=== PATIENT | male | born 1960 | race Caucasian/White ===

== ENCOUNTER 2019-05-15 11:42 | Emergency (ER) | payer MEDICAID, OTHER ==
[~2019-05-15] VITALS: Ht 175 cm; Wt 81.0 kg
[2019-05-15 14:00] LABS: BASOPHILS # (AUTO) 0.1 10^3/uL (0.0-0.1); BASOPHILS % (AUTO) 0 % (0-10); EOSINOPHILS # (AUTO) 0.2 10^3/uL (0.0-0.3); EOSINOPHILS % (AUTO) 1 % (0-10); HEMATOCRIT 43 % (40-54); HEMOGLOBIN 14.7 G/DL (13.3-17.7); LYMPHOCYTES # (AUTO) 1.8 X 10^3 (1.0-4.0); LYMPHOCYTES % (AUTO) 16 % (12-44); MEAN CORPUSCULAR HEMOGLOBIN 30 PG (25-34); MEAN CORPUSCULAR HGB CONC 34 G/DL (32-36); MEAN CORPUSCULAR VOLUME 88 FL (80-99); MEAN PLATELET VOLUME 9.3 FL (7.4-10.4); MONOCYTES # (AUTO) 0.7 X 10^3 (0.0-1.0); MONOCYTES % (AUTO) 7 % (0-12); NEUTROPHILS # (AUTO) 8.4 X 10^3 (1.8-7.8); NEUTROPHILS % (AUTO) 76 % (42-75); PLATELET COUNT 299 10^3/uL (130-400); RED CELL DISTRIBUTION WIDTH 13.6 % (10.0-14.5); WHITE BLOOD COUNT 11.2 10^3/uL (4.3-11.0)
[2019-05-15 14:18] LABS: ALANINE AMINOTRANSFERASE 20 U/L (0-55); ALBUMIN 4.4 GM/DL (3.2-4.5); ALKALINE PHOSPHATASE 152 U/L (40-136); BILIRUBIN,TOTAL 0.2 MG/DL (0.1-1.0); BUN/CREATININE RATIO 13; CALCIUM 9.2 MG/DL (8.5-10.1); CARBON DIOXIDE 27 MMOL/L (21-32); CHLORIDE 105 MMOL/L (98-107); CREATININE SERUM 0.96 MG/DL (0.60-1.30); GFR ESTIMATED > 60; GLUCOSE 116 MG/DL (70-105); MAGNESIUM 2.1 MG/DL (1.6-2.4); POTASSIUM 4.3 MMOL/L (3.6-5.0); SODIUM 139 MMOL/L (135-145); TOTAL PROTEIN 7.2 GM/DL (6.4-8.2)
[2019-05-15 14:50] LABS: BILIRUBIN,URINE NEGATIVE (NEGATIVE); CLARITY,URINE CLEAR; COLOR,URINE YELLOW; GLUCOSE, URINE (UA) NEGATIVE (NEGATIVE); KETONES,URINE NEGATIVE (NEGATIVE); LEUKOCYTE ESTERASE ,URINE NEGATIVE (NEGATIVE); NITRITE,URINE NEGATIVE (NEGATIVE); PROTEIN,URINE NEGATIVE (NEGATIVE)
[2019-05-15 15:01] LABS: BACTERIA,URINE TRACE /HPF; HYALINE CASTS, URINE 0-2 /LPF; WBC,URINE RARE /HPF
[2019-05-15 15:02] LABS: AMPHETAMINE SCREEN, URINE NEGATIVE (NEGATIVE); BARBITURATE SCREEN URINE NEGATIVE (NEGATIVE); BENZODIAZEPINES SCREEN URINE NEGATIVE (NEGATIVE); CANNABINOID SCREEN, URINE POSITIVE (NEGATIVE); COCAINE SCREEN URINE NEGATIVE (NEGATIVE); METHADONE STAT NEGATIVE (NEGATIVE); METHAMPHETAMINE SCREEN URINE S NEGATIVE (NEGATIVE); OPIATE SCREEN URINE NEGATIVE (NEGATIVE); OXYCODONE STAT NEGATIVE (NEGATIVE); PROPOXYPHENE STAT NEGATIVE (NEGATIVE); TRICYCLIC ANTIDEPRESSANTS SCRE NEGATIVE (NEGATIVE)
[2019-05-15] MEDS ORDERED: NS IV 1000 ML 1,000 ML IV ONE (15:09)
--- NOTE | 2019-05-15 15:51 | ED Syncope ---
General Chief Complaint: Dizziness/Syncope Stated Complaint: WEAKNESS,NAUSEA Nursing Triage Note: PT STATES HE STARTED A NEW MED TODAY- ABILIFY, AND HAS HAD 2-3 SYNCOPAL EPISODES, ONCE FALLING ON TO BOTH KNEE CAPS. DENIES STRIKING HEAD, DENIES NV Allergies and Home Medications Allergies Coded Allergies: codeine (Verified Allergy, Unknown, 05/15/19) Past Jiogakh-Rlhljr-Etptqe Hx Patient Social History Alcohol Use: Occasionally Uses Alcohol Beverage of Choice: Beer Recreational Drug Use: Yes Drug of Choice: METH, HEROIN, MARIJUANNA. Smoking Status: Never a Smoker Recent Foreign Travel: No Contact w/Someone Who Travel: No Recent Infectious Disease Expo: No Recent Hopitalizations: No Physical Abuse: No Sexual Abuse: No Mistreated: No Fear: No Immunizations Up To Date Tetanus Booster (TDap): Less than 5yrs PED Vaccines UTD: Yes Past Medical History Surgeries: No Appendectomy Respiratory: No Cardiac: No Neurological: No Genitourinary: No Gastrointestinal: Yes (COLON POLYPS ) Musculoskeletal: No Endocrine: No HEENT: No Cancer: No Psychosocial: Yes Depression Physical Exam Vital Signs Vital Signs - First Documented 05/15/19 13:08 Pulse 78 Resp 18 B/P (MAP) 146/87 (106) Pulse Ox 99 O2 Delivery Room Air Capillary Refill : Less Than 3 Seconds Height, Weight, BMI Height: '" Weight: lbs. oz. kg; 26.00 BMI Method: Progress/Results/Core Measures Results/Orders Lab Results Laboratory Tests Test 05/15/19 13:50 05/15/19 14:35 Range/Units White Blood Count 11.2 H 4.3-11.0 10^3/uL Red Blood Count 4.92 4.35-5.85 10^6/uL Hemoglobin 14.7 13.3-17.7 G/DL Hematocrit 43 40-54 % Mean Corpuscular Volume 88 80-99 FL Mean Corpuscular Hemoglobin 30 25-34 PG Mean Corpuscular Hemoglobin Concent 34 32-36 G/DL Red Cell Distribution Width 13.6 10.0-14.5 % Platelet Count 299 130-400 10^3/uL Mean Platelet Volume 9.3 7.4-10.4 FL Neutrophils (%) (Auto) 76 H 42-75 % Lymphocytes (%) (Auto) 16 12-44 % Monocytes (%) (Auto) 7 0-12 % Eosinophils (%) (Auto) 1 0-10 % Basophils (%) (Auto) 0 0-10 % Neutrophils # (Auto) 8.4 H 1.8-7.8 X 10^3 Lymphocytes # (Auto) 1.8 1.0-4.0 X 10^3 Monocytes # (Auto) 0.7 0.0-1.0 X 10^3 Eosinophils # (Auto) 0.2 0.0-0.3 10^3/uL Basophils # (Auto) 0.1 0.0-0.1 10^3/uL Sodium Level 139 135-145 MMOL/L Potassium Level 4.3 3.6-5.0 MMOL/L Chloride Level 105 98-107 MMOL/L Carbon Dioxide Level 27 21-32 MMOL/L Anion Gap 7 5-14 MMOL/L Blood Urea Nitrogen 12 7-18 MG/DL Creatinine 0.96 0.60-1.30 MG/DL Estimat Glomerular Filtration Rate > 60 BUN/Creatinine Ratio 13 Glucose Level 116 H 70-105 MG/DL Calcium Level 9.2 8.5-10.1 MG/DL Corrected Calcium 8.9 8.5-10.1 MG/DL Magnesium Level 2.1 1.6-2.4 MG/DL Total Bilirubin 0.2 0.1-1.0 MG/DL Aspartate Amino Transf (AST/SGOT) 14 5-34 U/L Alanine Aminotransferase (ALT/SGPT) 20 0-55 U/L Alkaline Phosphatase 152 H 40-136 U/L Total Protein 7.2 6.4-8.2 GM/DL Albumin 4.4 3.2-4.5 GM/DL Serum Alcohol < 10 <10 MG/DL Urine Color YELLOW Urine Clarity CLEAR Urine pH 6.0 5-9 Urine Specific [place] 1.020 1.016-1.022 Urine Protein NEGATIVE NEGATIVE Urine Glucose (UA) NEGATIVE NEGATIVE Urine Ketones NEGATIVE NEGATIVE Urine Nitrite NEGATIVE NEGATIVE Urine Bilirubin NEGATIVE NEGATIVE Urine Urobilinogen 0.2 < = 1.0 MG/DL Urine Leukocyte Esterase NEGATIVE NEGATIVE Urine RBC (Auto) NEGATIVE NEGATIVE Urine RBC NONE /HPF Urine WBC RARE /HPF Urine Squamous Epithelial Cells 2-5 /HPF Urine Crystals NONE /LPF Urine Bacteria TRACE /HPF Urine Casts PRESENT /LPF Urine Hyaline Casts 0-2 H /LPF Urine Mucus NEGATIVE /LPF Urine Culture Indicated NO Urine Opiates Screen NEGATIVE NEGATIVE Urine Oxycodone Screen NEGATIVE NEGATIVE Urine Methadone Screen NEGATIVE NEGATIVE Urine Propoxyphene Screen NEGATIVE NEGATIVE Urine Barbiturates Screen NEGATIVE NEGATIVE Ur Tricyclic Antidepressants Screen NEGATIVE NEGATIVE Urine Phencyclidine Screen NEGATIVE NEGATIVE Urine Amphetamines Screen NEGATIVE NEGATIVE Urine Methamphetamines Screen NEGATIVE NEGATIVE Urine Benzodiazepines Screen NEGATIVE NEGATIVE Urine Cocaine Screen NEGATIVE NEGATIVE Urine Cannabinoids Screen POSITIVE H NEGATIVE My Orders Orders - GABBY BENDER MD Cbc With Automated Diff (05/15/19 11:45) Comprehensive Metabolic Panel (05/15/19 11:45) Magnesium (05/15/19 11:45) Ua Culture If Indicated (05/15/19 11:45) Ed Iv/Invasive Line Start (05/15/19 11:45) Ekg Tracing (05/15/19 13:33) Monitor-Rhythm Ecg Trace Only (05/15/19 13:33) Drug Screen Stat (Urine) (05/15/19 13:34) Alcohol (05/15/19 11:45) Ns Iv 1000 Ml (Sodium Chloride 0.9%) (05/15/19 15:09) Medications Given in ED Current Medications Medications Dose Ordered Sig/Maria Route Start Time Stop Time Status Last Admin Dose Admin Sodium Chloride 1,000 ml @ 0 mls/hr Q0M ONCE IV 05/15/19 15:09 05/15/19 15:14 DC 05/15/19 15:37 1,000 MLS/HR Vital Signs/I&O 05/15/19 13:08 Pulse 78 Resp 18 B/P (MAP) 146/87 (106) Pulse Ox 99 O2 Delivery Room Air Blood Pressure Mean: 106 Departure Impression Primary Impression: Near syncope Disposition: 01 HOME, SELF-CARE Condition: Improved Departure-Patient Inst. Decision time for Depature: 03:45 [facility] Primary Care Physician EVA KELLOGG (Family) Primary Care Physician Patient Instructions: Syncope (Fainting) Add. Discharge Instructions: Drink plenty of clear liquids. Discontinue Abilify. Please notify your prescribing physician that you have discontinued Abilify. Avoid any dangerous activities that could cause a problem with lightheadedness until the effect of Abilify has worn off. Return to the emergency room if you have worsening symptoms. All discharge instructions reviewed with patient and/or family. Voiced understanding. GABBY BENDER MD May 15, 2019 15:51
[2019-05-15 16:18] VITALS: BP 126/81
== END 2019-05-15 16:19 | disposition home or self-care (01) ==
LOC: ER 11:43
DX: R55 Syncope and collapse (principal); Z88.5 Allergy status to narcotic agent; Z90.49 Acquired absence of other specified parts of digestive tract
CPT/HCPCS: 36415; 80053; 80306; 80320; 81000; 83735; 85025; 93005; 93041

== ENCOUNTER 2020-08-27 12:18 | Emergency (ER) | payer MEDICAID ==
[~2020-08-27] VITALS: Ht 172 cm; Wt 86.0 kg
--- NOTE | 2020-08-27 13:12 | ED Abdominal Pain ---
General Chief Complaint: Abdominal/GI Problems Stated Complaint: ABD/BACK PAIN Nursing Triage Note: Pt reports abd pain and nausea/vomiting for approx 1 week, progressively getting worse. Lower abd pain radiating to bilat flanks. Pt also reports bloating. Sepsis Screen: No Definite Risk Source of Information: Patient Exam Limitations: No Limitations History of Present Illness Date Seen by Provider: August 27, 2020 Time Seen by Provider: 13:07 Initial Comments To ER with a 3-month history of loose stools that he would not consider diarrhea. [place] foods seem to make this worse. The color varies. He has nausea usually after he eats anything spicy or greasy. He occasionally has some right upper quadrant pain. The pain that brought him in today began about a week ago and this pain is in the suprapubic location that radiates straight through to the back. He has attributed this to stress as he lost his daughter 5 years ago when he is working and raising 2 autistic grandchildren. Timing/Duration: 1 Week Severity/Quality: Moderate Location: Suprapubic Radiation: No Radiation Activities at Onset: None Associated Symptoms: Denies Symptoms Allergies and Home Medications Allergies Coded Allergies: codeine (Verified Allergy, Unknown, 05/15/19) Patient Home Medication List Home Medication List Reviewed: Yes Review of Systems Review of Systems Constitutional: see HPI EENTM: No Symptoms Reported Respiratory: No Symptoms Reported Cardiovascular: No Symptoms Reported Gastrointestinal: See HPI, Abdominal Pain, Nausea Genitourinary: No Symptoms Reported Musculoskeletal: no symptoms reported Skin: no symptoms reported Psychiatric/Neurological: No Symptoms Reported Endocrine: No Symptoms Reported Hematologic/Lymphatic: No Symptoms Reported Past Sniqzjv-Uzikmw-Ktbioa Hx Patient Social History Alcohol Use: Occasionally Uses Number of Drinks Today: AA Alcohol Beverage of Choice: Beer Drug of Choice: METH, HEROIN, 17 YEARS CLEAN Smoking Status: Current Everyday Smoker Recent Infectious Disease Expo: No Recent Hopitalizations: No Immunizations Up To Date Tetanus Booster (TDap): Less than 5yrs PED Vaccines UTD: Yes Past Medical History Surgeries: Yes Appendectomy Respiratory: No Cardiac: No Neurological: No Genitourinary: No Gastrointestinal: Yes (COLON POLYPS >20) Musculoskeletal: No Endocrine: No HEENT: No Cancer: No Psychosocial: Yes Depression Integumentary: No Physical Exam Vital Signs Vital Signs - First Documented 08/27/20 12:43 Temp 36.7 Pulse 66 Resp 18 B/P (MAP) 122/69 (86) Pulse Ox 99 O2 Delivery Room Air Capillary Refill : Less Than 3 Seconds Height/Weight/BMI Height: '" Weight: lbs. oz. kg; 29.00 BMI Method: General Appearance: WD/WN, no apparent distress HEENT: PERRL/EOMI, normal ENT inspection Respiratory: normal breath sounds, no respiratory distress, no accessory muscle use Cardiovascular: regular rate, rhythm, no murmur Gastrointestinal: normal bowel sounds, soft, tenderness Extremities: normal range of motion, non-tender Neurologic/Psychiatric: alert, normal mood/affect, oriented x 3 Skin: normal color, warm/dry Progress/Results/Core Measures Results/Orders Lab Results Laboratory Tests Test 08/27/20 13:08 Range/Units White Blood Count 7.3 4.3-11.0 10^3/uL Red Blood Count 4.99 4.30-5.52 10^6/uL Hemoglobin 14.8 13.3-17.7 g/dL Hematocrit 44 40-54 % Mean Corpuscular Volume 89 80-99 fL Mean Corpuscular Hemoglobin 30 25-34 pg Mean Corpuscular Hemoglobin Concent 33 32-36 g/dL Red Cell Distribution Width 13.2 10.0-14.5 % Platelet Count 270 130-400 10^3/uL Mean Platelet Volume 9.2 9.0-12.2 fL Immature Granulocyte % (Auto) 1 % Neutrophils (%) (Auto) 54 42-75 % Lymphocytes (%) (Auto) 34 12-44 % Monocytes (%) (Auto) 9 0-12 % Eosinophils (%) (Auto) 2 0-10 % Basophils (%) (Auto) 1 0-10 % Neutrophils # (Auto) 3.9 1.8-7.8 10^3/uL Lymphocytes # (Auto) 2.5 1.0-4.0 10^3/uL Monocytes # (Auto) 0.7 0.0-1.0 10^3/uL Eosinophils # (Auto) 0.1 0.0-0.3 10^3/uL Basophils # (Auto) 0.1 0.0-0.1 10^3/uL Immature Granulocyte # (Auto) 0.0 0.0-0.1 10^3/uL Urine Color YELLOW Urine Clarity CLEAR Urine pH 7.0 5-[address] [place] 1.025 H 1.016-1.022 Urine Protein NEGATIVE NEGATIVE Urine Glucose (UA) NEGATIVE NEGATIVE Urine Ketones NEGATIVE NEGATIVE Urine Nitrite NEGATIVE NEGATIVE Urine Bilirubin NEGATIVE NEGATIVE Urine Urobilinogen 1.0 < = 1.0 MG/DL Urine Leukocyte Esterase NEGATIVE NEGATIVE Urine RBC (Auto) NEGATIVE NEGATIVE Urine RBC RARE /HPF Urine WBC NONE /HPF Urine Squamous Epithelial Cells 0-2 /HPF Urine Crystals NONE /LPF Urine Bacteria NEGATIVE /HPF Urine Casts NONE /LPF Urine Mucus NEGATIVE /LPF Urine Culture Indicated NO Sodium Level 141 135-145 MMOL/L Potassium Level 4.5 3.6-5.0 MMOL/L Chloride Level 105 98-107 MMOL/L Carbon Dioxide Level 25 21-32 MMOL/L Anion Gap 11 5-14 MMOL/L Blood Urea Nitrogen 11 7-18 MG/DL Creatinine 0.93 0.60-1.30 MG/DL Estimat Glomerular Filtration Rate > 60 BUN/Creatinine Ratio 12 Glucose Level 109 H 70-105 MG/DL Calcium Level 9.3 8.5-10.1 MG/DL Corrected Calcium 9.1 8.5-10.1 MG/DL Total Bilirubin 0.4 0.1-1.0 MG/DL Aspartate Amino Transf (AST/SGOT) 19 5-34 U/L Alanine Aminotransferase (ALT/SGPT) 24 0-55 U/L Alkaline Phosphatase 136 40-136 U/L Total Protein 7.2 6.4-8.2 GM/DL Albumin 4.2 3.2-4.5 GM/DL Lipase 21 8-78 U/L My Orders Orders - BENNY KIRAN TAX MANAGER Cbc With Automated Diff (08/27/20 13:06) Comprehensive Metabolic Panel (08/27/20 13:06) Ua Culture If Indicated (08/27/20 13:06) Ed Iv/Invasive Line Start (08/27/20 13:06) Ct Abd/Pelvis Wo(Kidney Stone) (08/27/20 13:06) Lipase (08/27/20 13:06) Ketorolac Injection (Toradol Injection) (08/27/20 13:15) Ns Iv 1000 Ml (Sodium Chloride 0.9%) (08/27/20 13:15) Ondansetron Injection (Zofran Injectio (08/27/20 13:15) Us Gallbladder [id number] (08/27/20 13:15) Medications Given in ED Current Medications Medications Dose Ordered Sig/Maria Route Start Time Stop Time Status Last Admin Dose Admin Ketorolac Tromethamine 15 mg ONCE ONCE IVP 08/27/20 13:15 08/27/20 13:16 DC 08/27/20 13:27 15 MG Ondansetron HCl 8 mg ONCE ONCE IVP 08/27/20 13:15 08/27/20 13:16 DC 08/27/20 13:28 8 MG Vital Signs/I&O 08/27/20 12:43 Temp 36.7 Pulse 66 Resp 18 B/P (MAP) 122/69 (86) Pulse Ox 99 O2 Delivery Room Air Blood Pressure Mean: 86 Diagnostic Imaging Diagonstic Imaging: CT Comments NAME: KENZIE WILLIAMSON [facility] REC#: [id number] PT STATUS: REG ER : 1960 PHYSICIAN: BENNY KIRAN TAX MANAGER ADMIT DATE: 08/27/20/ER Draft Date of Exam:08/27/20 CT ABD/PELVIS WO(KIDNEY STONE) INDICATION: Abdominal pain. TECHNIQUE: Multiple contiguous axial images were obtained through the abdomen and pelvis without the use of intravenous contrast. Auto Exposure Controls were utilized during the CT exam to meet ALARA standards for radiation dose reduction. COMPARISON: There is no prior study for comparison. FINDINGS: Visualized portions of the lung bases are clear. There were no pleural fluid collections. There is no free intraperitoneal air. The liver shows no focal lesion. Gallbladder appears unremarkable. The spleen, adrenals, and pancreas appear normal. The kidneys bilaterally show no stones or hydronephrosis. There are no ureteral stones. There is no retroperitoneal mass or adenopathy. There is no ascites or abnormal fluid collection. Visualized bowel loops show no sign of obstruction. There are extensive uncomplicated sigmoid diverticuli and left colonic diverticuli. Appendix is not visualized. IMPRESSION: No hydronephrosis or ureteral stone. Uncomplicated sigmoid diverticuli. No sign of bowel obstruction or abnormal fluid collection or focal inflammatory process. Dictated on workstation # [id number] Dict: 08/27/20 1440 Trans: 08/27/20 1445 [facility] [id number] Interpreted by: IVANIA TARANGO MD Electronically signed by: Departure Communication (Admissions) NAME: KENZIE WILLIAMSON [facility] REC#: [id number] PT STATUS: REG ER : 1960 PHYSICIAN: BENNY KIRAN APRN ADMIT DATE: 08/27/20/ER Draft Date of Exam:08/27/20 US GALLBLADDER [id number] PROCEDURE: US Gallbladder. TECHNIQUE: Multiple real-time grayscale images were obtained over the right upper quadrant in various projections. INDICATION: Right upper quadrant pain. FINDINGS: The liver is normal in size at 15 cm. No discrete liver mass is detected. The portal vein is patent and shows normal direction of flow. Gallbladder is without stones or sludge. No wall thickening or biliary ductal dilatation is seen. Pancreas is unremarkable. Aorta is nonaneurysmal. Right kidney is without calculi or hydronephrosis. There is no ascites. IMPRESSION: Unremarkable gallbladder ultrasound. Dictated on workstation # [id number] Dict: 08/27/20 1408 Trans: 08/27/20 1411 AS6 [id number] Interpreted by: HOMERO TAYLOR MD Electronically signed by: Impression Primary Impression: Abdominal pain Disposition: HOME, SELF-CARE Condition: Stable Departure-Patient Inst. Decision time for Depature: 14:52 Referrals: NO,LOCAL PHYSICIAN (PCP) Primary Care Physician COTY FINK MD Patient Instructions: NO INSTRUCTIONS GIVEN Add. Discharge Instructions: 1. Follow-up with a primary care provider. Take the medication as directed. Return to ER for any worsening. All discharge instructions reviewed with patient and/or family. Voiced understanding. Scripts Dicyclomine HCl (Dicyclomine HCl) 20 Mg Tablet 20 MG PO TID, #30 TAB Prov: BENNY KIRAN APRN 08/27/20 BENNY KIRAN APRN August 27, 2020 13:12
[2020-08-27 13:15] LABS: BASOPHILS # (AUTO) 0.1 10^3/uL (0.0-0.1); BASOPHILS % (AUTO) 1 % (0-10); BILIRUBIN,URINE NEGATIVE (NEGATIVE); CLARITY,URINE CLEAR; COLOR,URINE YELLOW; EOSINOPHILS # (AUTO) 0.1 10^3/uL (0.0-0.3); EOSINOPHILS % (AUTO) 2 % (0-10); GLUCOSE, URINE (UA) NEGATIVE (NEGATIVE); HEMATOCRIT 44 % (40-54); HEMOGLOBIN 14.8 g/dL (13.3-17.7); KETONES,URINE NEGATIVE (NEGATIVE); LEUKOCYTE ESTERASE ,URINE NEGATIVE (NEGATIVE); LYMPHOCYTES # (AUTO) 2.5 10^3/uL (1.0-4.0); LYMPHOCYTES % (AUTO) 34 % (12-44); MEAN CORPUSCULAR HEMOGLOBIN 30 pg (25-34); MEAN CORPUSCULAR HGB CONC 33 g/dL (32-36); MEAN CORPUSCULAR VOLUME 89 fL (80-99); MEAN PLATELET VOLUME 9.2 fL (9.0-12.2); MONOCYTES # (AUTO) 0.7 10^3/uL (0.0-1.0); MONOCYTES % (AUTO) 9 % (0-12); NEUTROPHILS # (AUTO) 3.9 10^3/uL (1.8-7.8); NEUTROPHILS % (AUTO) 54 % (42-75); NITRITE,URINE NEGATIVE (NEGATIVE); PLATELET COUNT 270 10^3/uL (130-400); PROTEIN,URINE NEGATIVE (NEGATIVE); WHITE BLOOD COUNT 7.3 10^3/uL (4.3-11.0)
[2020-08-27] MEDS ORDERED: KETOROLAC 30 MG/ML VIAL IVP ONE (13:15)
[2020-08-27] MEDS ORDERED: ONDANSETRON 4 MG/2 ML (SDV) Z0FRAN IVP ONE (13:15)
[2020-08-27] MEDS ORDERED: NS IV 1000 ML 1,000 ML IV SCH (13:15)
[2020-08-27 13:18] LABS: ALBUMIN 4.2 GM/DL (3.2-4.5); CHLORIDE 105 MMOL/L (98-107); POTASSIUM 4.5 MMOL/L (3.6-5.0); SODIUM 141 MMOL/L (135-145)
[2020-08-27 13:19] LABS: CALCIUM 9.3 MG/DL (8.5-10.1)
[2020-08-27 13:20] LABS: GLUCOSE 109 MG/DL (70-105); TOTAL PROTEIN 7.2 GM/DL (6.4-8.2)
[2020-08-27 13:22] LABS: BILIRUBIN,TOTAL 0.4 MG/DL (0.1-1.0); CARBON DIOXIDE 25 MMOL/L (21-32)
[2020-08-27 13:24] LABS: ALKALINE PHOSPHATASE 136 U/L (40-136); CREATININE SERUM 0.93 MG/DL (0.60-1.30); GFR ESTIMATED > 60
[2020-08-27 13:25] LABS: BUN/CREATININE RATIO 12
[2020-08-27 13:26] LABS: BACTERIA,URINE NEGATIVE /HPF; RBC,URINE RARE /HPF; SQUAMOUS EPITHELIAL CELL,UR 0-2 /HPF
[2020-08-27 13:27] LABS: ALANINE AMINOTRANSFERASE 24 U/L (0-55); LIPASE 21 U/L (8-78)
--- NOTE | 2020-08-27 14:12 | Diagnostic Imaging Report ---
PROCEDURE: US Gallbladder. TECHNIQUE: Multiple real-time grayscale images were obtained over the right upper quadrant in various projections. INDICATION: Right upper quadrant pain. FINDINGS: The liver is normal in size at 15 cm. No discrete liver mass is detected. The portal vein is patent and shows normal direction of flow. Gallbladder is without stones or sludge. No wall thickening or biliary ductal dilatation is seen. Pancreas is unremarkable. Aorta is nonaneurysmal. Right kidney is without calculi or hydronephrosis. There is no ascites. IMPRESSION: Unremarkable gallbladder ultrasound. Dictated by: Dictated on workstation # [id number]
--- NOTE | 2020-08-27 14:46 | Diagnostic Imaging Report ---
INDICATION: Abdominal pain. TECHNIQUE: Multiple contiguous axial images were obtained through the abdomen and pelvis without the use of intravenous contrast. Auto Exposure Controls were utilized during the CT exam to meet ALARA standards for radiation dose reduction. COMPARISON: There is no prior study for comparison. FINDINGS: Visualized portions of the lung bases are clear. There were no pleural fluid collections. There is no free intraperitoneal air. The liver shows no focal lesion. Gallbladder appears unremarkable. The spleen, adrenals, and pancreas appear normal. The kidneys bilaterally show no stones or hydronephrosis. There are no ureteral stones. There is no retroperitoneal mass or adenopathy. There is no ascites or abnormal fluid collection. Visualized bowel loops show no sign of obstruction. There are extensive uncomplicated sigmoid diverticuli and left colonic diverticuli. Appendix is not visualized. IMPRESSION: No hydronephrosis or ureteral stone. Uncomplicated sigmoid diverticuli. No sign of bowel obstruction or abnormal fluid collection or focal inflammatory process. Dictated by: Dictated on workstation # [id number]
[2020-08-27] MEDS ORDERED: DICY20TA10 PO (14:53)
[2020-08-27 15:13] VITALS: BP 122/69
== END 2020-08-27 15:12 | disposition home or self-care (01) ==
LOC: EDUNIT# 12:18 → ER 12:20
DX: R10.11 Right upper quadrant pain (principal); F17.200 Nicotine dependence, unspecified, uncomplicated; Z88.5 Allergy status to narcotic agent
CPT/HCPCS: 36415; 74176; 76705; 80053; 81000; 83690; 85025

== ENCOUNTER 2022-05-25 21:17 | Emergency (ER) | payer MEDICAID ==
[~2022-05-25 21:17] MED LIST: DICY20TA PO
[2022-05-25 22:23] LABS: BILIRUBIN,URINE NEGATIVE (NEGATIVE); CLARITY,URINE CLEAR; COLOR,URINE YELLOW; GLUCOSE, URINE (UA) NEGATIVE (NEGATIVE); KETONES,URINE NEGATIVE (NEGATIVE); LEUKOCYTE ESTERASE ,URINE NEGATIVE (NEGATIVE); NITRITE,URINE NEGATIVE (NEGATIVE); PH,URINE 6.5 (5-9); PROTEIN,URINE NEGATIVE (NEGATIVE)
[2022-05-25 22:34] LABS: BACTERIA,URINE TRACE /HPF; RBC,URINE RARE /HPF
[2022-05-25] MEDS ORDERED: KETOROLAC 30 MG/ML VIAL IM ONE (23:30)
[2022-05-25] MEDS ORDERED: HYDROcodone/APAP 5 MG/325 MG (LORTAB) TAB PO ONE (23:30)
--- NOTE | 2022-05-25 23:32 | ED GU-Male ---
General Chief Complaint: - Reproductive Stated Complaint: TESTICLE PAIN Nursing Triage Note: TO ED VIA POV AND AMBULATORY TO ROOM 7 WITH C/O RIGHT SIDE TESTICULAR PAIN SINCE SEPTEMBER OF 2021. STATES TROUBLE URINATING "OCCASIONALLY". HAS NOT SEEN PCP FOR THIS CONCERN. 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 STATES, "I HAVE A REALLY HIGH PAIN TOLERANCE". RATES PAIN 03/28. Source: patient Exam Limitations: no limitations History of Present Illness Date Seen by Provider: May 25, 2022 Time Seen by Provider: 22:00 Initial Comments This 62-year-old gentleman presents to the emergency room with complaints of inguinal and scrotal pain since about September. It has been much worse over the past 2 weeks. Scrotum is very sensitive to the touch. He also has some dysuria. He has had some recent difficulty with bowel movements as well. No hematuria. No fevers. Has occasionally felt a little chilled. His primary care provider is Charley Rene. Allergies and Home Medications Allergies Coded Allergies: codeine (Verified Allergy, Unknown, 05/15/19) Patient Home Medication List Home Medication List Reviewed: Yes Dicyclomine HCl (Dicyclomine HCl) 20 Mg Tablet, 20 MG PO TID Prescribed by: BENNY KIRAN on 08/27/20 1453 Levofloxacin (Levofloxacin) 500 Mg Tablet, 500 MG PO DAILY Prescribed by: GABBY AGARWAL on 05/26/22 0546 Review of Systems Review of Systems Constitutional: see HPI EENTM: no symptoms reported Respiratory: no symptoms reported Cardiovascular: no symptoms reported Gastrointestinal: see HPI Genitourinary: see HPI Musculoskeletal: no symptoms reported Skin: no symptoms reported Psychiatric/Neurological: No Symptoms Reported Endocrine: No Symptoms Reported Hematologic/Lymphatic: No Symptoms Reported Past Fhhzgjg-[id number]-Shexpd Hx Patient Social History Tobacco Use?: No Smoking Status: Former Smoker Substance use?: Yes ("ice") Substance type: Marijuana Alcohol Use?: Yes Alcohol Frequency: Once in a while Immunizations Up To Date Tetanus Booster (TDap): Less than 5yrs PED Vaccines UTD: Yes Influenza Vaccine Up-to-Date: No; Not Current Past Medical History Surgeries: Yes Appendectomy Respiratory: No Cardiac: No Neurological: No Genitourinary: No Gastrointestinal: Yes (COLON POLYPS >20) Musculoskeletal: Yes Arthritis Endocrine: No HEENT: No Cancer: No Psychosocial: Yes Depression Integumentary: No Physical Exam Vital Signs Vital Signs - First Documented 05/25/22 21:43 Temp 36.6 Pulse 101 Resp 16 B/P (MAP) 131/89 (103) Pulse Ox 97 O2 Delivery Room Air Capillary Refill : Less Than 3 Seconds Height, Weight, BMI Height: '" Weight: lbs. oz. kg; 29.00 BMI Method: General Appearance: WD/WN, mild distress, thin HEENT: normal ENT inspection Neck: normal inspection Cardiovascular: regular rate, rhythm, no edema, no murmur Respiratory: lungs clear, normal breath sounds Gastrointestinal: non tender, soft Genital/Rectal: other (Tenderness and fullness in the inguinal regions, right greater than left. No definite hernia noted but small hernia may be present. There was bulging into the inguinal canal with Valsalva. Scrotum and testicles were diffusely tender, right greater than left, with some induration on the right. No significant erythema or inflammatory changes.) Extremities: normal inspection, no pedal edema Neurologic/Psychiatric: no motor/sensory deficits, alert, normal mood/affect, oriented x 3 Skin: normal color, warm/dry Progress/Results/Core Measures Suspected Sepsis SIRS Temperature: Pulse: 101 Respiratory Rate: 16 Laboratory Tests 05/26/22 02:27: White Blood Count 9.1 Blood Pressure 131 /89 Mean: 103 Laboratory Tests 05/26/22 02:27: Creatinine 1.01, Platelet Count 311, Total Bilirubin 0.3 Results/Orders Lab Results Laboratory Tests Test 05/25/22 22:17 05/26/22 02:27 Range/Units Urine Color YELLOW Urine Clarity CLEAR Urine pH 6.5 5-9 Urine Specific [place] 1.025 H 1.016-1.022 Urine Protein NEGATIVE NEGATIVE Urine Glucose (UA) NEGATIVE NEGATIVE Urine Ketones NEGATIVE NEGATIVE Urine Nitrite NEGATIVE NEGATIVE Urine Bilirubin NEGATIVE NEGATIVE Urine Urobilinogen 1.0 < = 1.0 MG/DL Urine Leukocyte Esterase NEGATIVE NEGATIVE Urine RBC (Auto) NEGATIVE NEGATIVE Urine RBC RARE /HPF Urine WBC 5-10 H /HPF Urine Squamous Epithelial Cells 2-5 /HPF Urine Crystals NONE /LPF Urine Bacteria TRACE /HPF Urine Casts NONE /LPF Urine Mucus SMALL H /LPF Urine Culture Indicated NO White Blood Count 9.1 4.3-11.0 10^3/uL Red Blood Count 4.71 4.30-5.52 10^6/uL Hemoglobin 14.0 13.3-17.7 g/dL Hematocrit 42 40-54 % Mean Corpuscular Volume 89 80-99 fL Mean Corpuscular Hemoglobin 30 25-34 pg Mean Corpuscular Hemoglobin Concent 34 32-36 g/dL Red Cell Distribution Width 12.8 10.0-14.5 % Platelet Count 311 130-400 10^3/uL Mean Platelet Volume 9.1 9.0-12.2 fL Immature Granulocyte % (Auto) 0 % Neutrophils (%) (Auto) 51 42-75 % Lymphocytes (%) (Auto) 35 12-44 % Monocytes (%) (Auto) 9 0-12 % Eosinophils (%) (Auto) 2 0-10 % Basophils (%) (Auto) 1 0-10 % Neutrophils # (Auto) 4.6 1.8-7.8 10^3/uL Lymphocytes # (Auto) 3.2 1.0-4.0 10^3/uL Monocytes # (Auto) 0.8 0.0-1.0 10^3/uL Eosinophils # (Auto) 0.2 0.0-0.3 10^3/uL Basophils # (Auto) 0.1 0.0-0.1 10^3/uL Immature Granulocyte # (Auto) 0.0 0.0-0.1 10^3/uL Sodium Level 138 135-145 MMOL/L Potassium Level 4.9 3.6-5.0 MMOL/L Chloride Level 102 98-107 MMOL/L Carbon Dioxide Level 27 21-32 MMOL/L Anion Gap 9 5-14 MMOL/L Blood Urea Nitrogen 16 7-18 MG/DL Creatinine 1.01 0.60-1.30 MG/DL Estimat Glomerular Filtration Rate 85 BUN/Creatinine Ratio 16 Glucose Level 102 70-105 MG/DL Calcium Level 9.4 8.5-10.1 MG/DL Corrected Calcium 9.3 8.5-10.1 MG/DL Total Bilirubin 0.3 0.1-1.0 MG/DL Aspartate Amino Transf (AST/SGOT) 13 5-34 U/L Alanine Aminotransferase (ALT/SGPT) 17 0-55 U/L Alkaline Phosphatase 129 40-136 U/L C-Reactive Protein High Sensitivity 0.07 0.00-0.50 MG/DL Total Protein 7.1 6.4-8.2 GM/DL Albumin 4.1 3.2-4.5 GM/DL My Orders Orders - GABBY BENDER MD Ua Culture If Indicated (05/25/22 22:00) Urine Culture (05/25/22 23:09) Ketorolac Injection (Toradol Injection) (05/25/22 23:30) Hydrocodone/Apap 5/325 Tablet (Lortab 5 (05/25/22 23:30) Us Scrotum (Testicle) 77308 (05/26/22 00:01) Cbc With Automated Diff (05/26/22 02:14) Comprehensive Metabolic Panel (05/26/22 02:14) Hs C Reactive Protein (05/26/22 02:14) Ed Iv/Invasive Line Start (05/26/22 02:14) Morphine Injection (Morphine Injection (05/26/22 02:14) Chlamydia Trachomatis Urine (05/26/22 02:14) Neis Braden Dna Urine Test (05/26/22 02:14) Ceftriaxone 1 Gm Pre-Mix (Rocephin 1 Gm (05/26/22 02:17) Ct Abdomen/Pelvis W (05/26/22 02:39) Iohexol Injection (Omnipaque 350 Mg/Ml 1 (05/26/22 04:45) Received Contrast (Hold Metformin- Contr (05/26/22 04:45) Ns (Ivpb) (Sodium Chloride 0.9% Ivpb Bag (05/26/22 04:45) Medications Given in ED Current Medications Medications Dose Ordered Sig/Maria Route Start Time Stop Time Status Last Admin Dose Admin Iohexol 100 ml ONCE ONCE IV 05/26/22 04:45 05/26/22 04:47 DC 05/26/22 04:37 100 ML Sodium Chloride 100 ml ONCE ONCE IV 05/26/22 04:45 05/26/22 04:47 DC 05/26/22 04:37 80 ML Vital Signs/I&O 05/25/22 05/26/22 21:43 05:54 Temp 36.6 36.6 Pulse 101 90 Resp 16 16 B/P (MAP) 131/89 (103) 128/89 Pulse Ox 97 98 O2 Delivery Room Air Room Air Capillary Refill : Less Than 3 Seconds Blood Pressure Mean: 103 Progress Note : Progress Note Patient was treated with hydrocodone and a Toradol injection. Ultrasound of the scrotum was obtained to evaluate for possible incarcerated inguinal hernia. There was question of hernia on the exam as discussed with the imaging technician. Report was reviewed. Per radiologist's recommendations a CT scan was obtained. When IV was established labs were also performed. CBC, CRP, CMP were all unremarkable. There was slight pyuria on urinalysis. CT demonstrated bilateral inguinal hernias involving adipose tissue only. There was no bowel involvement. Ultrasound demonstrated possible left orchitis. Patient was treated with Rocephin initially and Levaquin was prescribed. STI and urine culture results are pending. Patient was additionally treated with morphine. Diagnostic Imaging Diagonstic Imaging: Ultrasound Plain Films/CT/US/NM/MRI: other (Scrotum) Comments Ultrasound was discussed with imaging technician and [facility] report was reviewed. There was suspicion of bilateral inguinal hernia with possible bowel involvement on the right with Valsalva. Possible left orchitis was also noted. Diagonstic Imaging: CT Plain Films/CT/US/NM/MRI: abdomen, pelvis Comments CT abdomen and pelvis with contrast was reviewed by me. I do not appreciate any bowel involvement in the bilateral inguinal hernias. No other acute abnormalities were appreciated on my interpretation. [facility] report was also reviewed which indicated bilateral inguinal hernias containing adipose tissue only. There is no involved bowel. No other acute abnormalities were appreciated. Departure Impression Primary Impression: Bilateral inguinal hernia Qualified Codes: K40.20 - Bilateral inguinal hernia, without obstruction or gangrene, not specified as recurrent Additional Impression: Bilateral orchitis Disposition: 01 HOME, SELF-CARE Condition: Improved Departure-Patient Inst. Decision time for Depature: 05:42 Referrals: NO,LOCAL PHYSICIAN (PCP/Family) Primary Care Physician Patient Instructions: Epididymitis, Groin Hernias Add. Discharge Instructions: It does appear that you have inguinal (groin) hernias on both sides. The CT sc an showed only fat tissue within the hernias. Intestines were not involved in the hernias at the time of the CT. There is suggestion of an faction and/or inflammation of the testicles and epididymis. Treat this with Levaquin as prescribed. For pain you may use ibuprofen as your primary pain medication. You may use your prescription 800 mg tablets every 8 hours or [id number] tablets up to 600 mg every 6 hours. Add Tylenol (acetaminophen) up to 1000 mg every 6 hours as needed for additional pain relief. Follow-up with your primary care provider on afternoon or Wednesday morning to review urine culture results. Also discuss referral to a surgeon for evaluation and monitoring of your hernias. Avoid heavy lifting and abdominal straining when possible to prevent worsening your hernias. Return to care if you have worsening symptoms despite following these instructions. All discharge instructions reviewed with patient and/or family. Voiced understanding. Scripts Levofloxacin (Levofloxacin) 500 Mg Tablet 500 MG PO DAILY, #10 TAB Prov: GABBY BENDER MD 05/26/22 Copy Copies To 1: [facility] [place] GABBY BENDER MD May 25, 2022 23:32
[2022-05-26] MEDS ORDERED: morphine INJ 10 MG/ML 1ML (SYR OR VIAL) IVP STA ×2 (02:14→04:48)
[2022-05-26] MEDS ORDERED: cefTRIAXone 1 GM PRE-MIX 50 ML IV STA (02:17)
[2022-05-26 02:41] LABS: BASOPHILS # (AUTO) 0.1 10^3/uL (0.0-0.1); BASOPHILS % (AUTO) 1 % (0-10); EOSINOPHILS # (AUTO) 0.2 10^3/uL (0.0-0.3); EOSINOPHILS % (AUTO) 2 % (0-10); HEMATOCRIT 42 % (40-54); LYMPHOCYTES # (AUTO) 3.2 10^3/uL (1.0-4.0); LYMPHOCYTES % (AUTO) 35 % (12-44); MEAN CORPUSCULAR HEMOGLOBIN 30 pg (25-34); MEAN CORPUSCULAR HGB CONC 34 g/dL (32-36); MEAN CORPUSCULAR VOLUME 89 fL (80-99); MEAN PLATELET VOLUME 9.1 fL (9.0-12.2); MONOCYTES # (AUTO) 0.8 10^3/uL (0.0-1.0); MONOCYTES % (AUTO) 9 % (0-12); NEUTROPHILS # (AUTO) 4.6 10^3/uL (1.8-7.8); NEUTROPHILS % (AUTO) 51 % (42-75); PLATELET COUNT 311 10^3/uL (130-400); WHITE BLOOD COUNT 9.1 10^3/uL (4.3-11.0)
[2022-05-26 02:54] LABS: ALBUMIN 4.1 GM/DL (3.2-4.5); POTASSIUM 4.9 MMOL/L (3.6-5.0)
[2022-05-26 02:55] LABS: CALCIUM 9.4 MG/DL (8.5-10.1)
[2022-05-26 02:56] LABS: TOTAL PROTEIN 7.1 GM/DL (6.4-8.2)
[2022-05-26 02:58] LABS: BILIRUBIN,TOTAL 0.3 MG/DL (0.1-1.0)
[2022-05-26 03:00] LABS: CREATININE SERUM 1.01 MG/DL (0.60-1.30)
[2022-05-26] MEDS ORDERED: IOHEXOL 350 MG/ML 100 ML (OMNIPAQUE 350) VIAL IV ONE (04:45)
[2022-05-26] MEDS ORDERED: HOLD METFORMIN - RECEIVED CONTRAST 20 ML VIAL IV SCH (04:45)
[2022-05-26] MEDS ORDERED: NS 100 ML (IVPB) BAG IV ONE (04:45)
[2022-05-26] MEDS ORDERED: RT-ALBUTEROL/IPRATROPIUM 3 ML (DUONEB) VIAL INH ONE (05:00)
[2022-05-26] MEDS ORDERED: LEVO-55 PO (05:46)
[2022-05-26 05:54] VITALS: BP 128/89
--- NOTE | 2022-05-26 07:15 | Diagnostic Imaging Report ---
PROCEDURE: CT abdomen and pelvis with contrast. TECHNIQUE: Multiple contiguous axial images were obtained through the abdomen and pelvis after administration of intravenous contrast. Auto Exposure Controls were utilized during the CT exam to meet ALARA standards for radiation dose reduction. All CT scans use one or more of the following dose optimizing techniques: automated exposure control, MA and/or KvP adjustment based on patient size and exam type or iterative reconstruction. INDICATION: Right inguinal hernia. Abdominal pain. COMPARISON: CT abdomen pelvis without contrast 08/27/2020. Testicular ultrasound 05/26/2022. FINDINGS: The lung bases are clear. The liver, gallbladder, pancreas, spleen, adrenals, kidneys, collecting systems and bladder are negative. No evidence of appendicitis. No free intraperitoneal air or fluid. No lymphadenopathy. No evidence of bowel obstruction. Mild colonic diverticulosis without evidence of active diverticulitis. Small fat-containing inguinal hernias. No herniated bowel loops. No acute osseous findings. IMPRESSION: 1. No acute CT findings in the abdomen or pelvis. 2. Small fat-containing inguinal hernias bilaterally. No herniated bowel loops. 3. Mild colonic diverticulosis without evidence of active diverticulitis. No significant change from preliminary interpretation. Dictated by: Dictated on workstation # [id number]
--- NOTE | 2022-05-26 08:18 | Diagnostic Imaging Report ---
PROCEDURE: US Scrotum. TECHNIQUE: Multiple real-time grayscale images were obtained over the scrotum in various projections bilaterally. INDICATION: Right scrotal and inguinal pain. COMPARISON: CT abdomen and pelvis 08/27/2020, 05/26/2022. FINDINGS: Right testicle measures 4.8 x 2.1 x 3.3 cm. Left testicle measures 4.8 x 2.2 x 3.6 cm. Normal flow by color Doppler in both testicles. Normal epididymis. No hydrocele. Left-sided varicocele. Sonographers notes mention protruding bowel in the right inguinal canal under Valsalva. The provided cine images demonstrate some movement of fat without a definite bowel loop identified. No fluid collections in the inguinal canals. IMPRESSION: 1. Possible right inguinal hernia containing a small loop of bowel under Valsalva. This was not confirmed on a subsequent CT which demonstrated small bilateral fat-containing inguinal hernias with involved bowel loops. 2. Left-sided varicocele. Dictated by: Dictated on workstation # [id number]
== END 2022-05-26 05:54 | disposition home or self-care (01) ==
LOC: EDUNIT# 21:17 → ER 21:19
DX: K40.20 Bilateral inguinal hernia, without obstruction or gangrene, not specified as recurrent (principal); N45.2 Orchitis; R82.81 Pyuria; Z87.891 Personal history of nicotine dependence; Z88.5 Allergy status to narcotic agent; Z28.310 Unvaccinated for COVID-19
CPT/HCPCS: 36415; 74177; 76870; 80053; 81000; 85025; 86141; 87088; 87491; 87591